=== PATIENT | female | born 1940 | race Two or more races ===

== ENCOUNTER 2023-10-28 13:07 | Inpatient (IN) | payer OTHER ==
[~2023-10-28] VITALS: Ht 167.6 cm; Wt 79.4 kg
[2023-10-28] MEDS: PANTOPRAZOLE 40 MG/10 ML VIAL INJ IV ONE (13:53)
[2023-10-28] MEDS: GLUCAGON EMERG KIT 1mg/1ml IV ONE (13:54)
[2023-10-28] MEDS: SODIUM CHLORIDE 0.9% 1,000 ML IV ONE (15:30)
[2023-10-28 16:09] LABS: Basophils # (auto) 0 10 ^3/uL (0-0.2); Basophils % (auto) 0.1 % (0.0-2.0); Eosinophils # (auto) 0.4 10 ^3/uL (0-0.8); Hematocrit 35.6 % (36.0-46.0); Hemoglobin 11.7 g/dL (12.2-16.2); Lymphocytes # (auto) 1.7 10 ^3/uL (0.4-5.4); Lymphocytes % (auto) 17.1 % (10.0-50.0); Mean Corpuscular Hemoglobin 29.3 pg (28.0-32.0); Mean Corpuscular Hgb Conc. 32.8 g/dL (32.0-36.0); Mean Corpuscular Volume 89.3 fL (80.0-100.0); Monocytes # (auto) 0.4 10 ^3/uL (0-1.3); Monocytes % (auto) 4.2 % (0.0-12.0); Neutrophils # (auto) 7.6 10 ^3/uL (1.6-8.6); Neutrophils % (auto) 74.6 % (37.0-80.0); Red Blood Cells 3.99 10^6/uL (4.0-5.20); Red Cell Distribution Width 14.4 % (11.8-14.3); White Blood Cell 10.2 10^3/uL (4.4-10.8)
[2023-10-28 16:20] LABS: Chloride 106 mmol/L (98-107); Sodium 140 mmol/L (136-145)
[2023-10-28 16:21] LABS: Anion Gap 4 (5-15); Calcium 9.7 mg/dL (8.5-10.1); Carbon Dioxide 30 mmol/L (20-30)
[2023-10-28 16:26] LABS: BUN/Creatinine Ratio 17.5 (10.0-20.0); Blood Urea Nitrogen 18 mg/dL (9-23); Glucose 221 mg/dL (74-106)
[2023-10-28 16:28] LABS: INR 0.97 (0.9-1.15); Partial Thromboplastin Time 25.4 SEC (24.5-34.5); Prothrombin Time 10.3 sec (9.3-11.8)
[2023-10-28] MEDS ORDERED: HYDROcodone-ACET 5/325MG TAB PO PRN (17:00)
[2023-10-28] MEDS ORDERED: DOCUSATE SOD 100 MG CAP PO PRN (17:00)
[2023-10-28] MEDS ORDERED: HYDROmorphone HCL 2 MG/ML VL/or syr IV PRN (17:00)
[2023-10-28] MEDS ORDERED: ONDANSETRON HCL 4 MG/2 ML VIAL IV PRN (17:00)
[2023-10-28] MEDS ORDERED: ACETAMINOPHEN 325 MG TAB PO PRN (17:00)
[2023-10-28] MEDS: LACTATED RINGER'S 1,000 ML IV ONE (17:16)
[2023-10-28 19:40] VITALS: PULSE 68; RESP 16; O2SAT 97
[2023-10-28] MEDS: SODIUM CHLOR 0.9% PF (SALINE LOCK) 10ML VIAL/SYR IV SCH (22:03)
[2023-10-28] MEDS: cloNIDine HCL 0.1 MG TAB PO ONE (23:16)
[2023-10-29] VITALS (8 sets, daily range): BP systolic 143–158; BP diastolic 49–87; PULSE 57–75; RESP 16–20; TEMP 97.5–98.1; O2SAT 94–100
[2023-10-29] MEDS ORDERED: LISI40TA16 PO (01:23)
[2023-10-29] MEDS ORDERED: AMLO1TAB22 PO (01:23)
[2023-10-29] MEDS ORDERED: ROSU20TA56 PO (01:23)
[2023-10-29] MEDS ORDERED: VERA180T60 PO (01:23)
[2023-10-29] MEDS: ENOXAPARIN SOD 40 MG/0.4 ML SYRINGE SC SCH (10:00)
[2023-10-29] MEDS ORDERED: HYDROmorphone HCL 2 MG/ML VL/or syr IV PRN (12:00)
[2023-10-29] MEDS: ACCU-CHEK COMFORT CURVE STRIP VI ONE (12:00)
[2023-10-29] MEDS ORDERED: fentaNYL CITRATE 100 MCG/2 ML VL ONE (12:01)
[2023-10-29] MEDS ORDERED: PROPOFOL 10 MG/ML 20 ML IV ONE (12:01)
[2023-10-29] MEDS ORDERED: MIDAZOLAM HCL 2MG/2ML 2ml VIAL (1mg/ml) ONE (12:01)
[2023-10-29] MEDS ORDERED: ONDANSETRON HCL 4 MG/2 ML VIAL ONE (12:01)
[2023-10-29] MEDS ORDERED: GLYCOPYRROLATE 0.2 MG/ML 1ML VIAL ONE (12:01)
[2023-10-29] MEDS ORDERED: MEPERIDINE HCL (25 MG/ML) 1ML VIAL ONE (12:28)
[2023-10-29] MEDS: EPINEPHrine HCL 1 MG/10 ML SYRG ONE (12:30)
[2023-10-29] MEDS: PANTOPRAZOLE 40mg/50ML NS AE 50 ML IV SCH (13:15)
[2023-10-29] MEDS ORDERED: GLIP5TAB5 PO (16:52)
[2023-10-29] MEDS: hydrALAZINE HCL 20 MG/ML VL IV PRN (17:25)
[2023-10-29] MEDS: ATORVASTATIN 20 MG TAB PO SCH (21:34)
[2023-10-30] VITALS (8 sets, daily range): BP systolic 131–192; BP diastolic 25–60; PULSE 61–76; RESP 18–19; TEMP 97.7–98.8; O2SAT 93–97
[2023-10-30 06:42] LABS: Basophils # (auto) 0 10 ^3/uL (0-0.2); Basophils % (auto) 0.2 % (0.0-2.0); Eosinophils # (auto) 0.3 10 ^3/uL (0-0.8); Eosinophils % (auto) 4.1 % (0.0-7.0); Hematocrit 34.6 % (36.0-46.0); Hemoglobin 11.2 g/dL (12.2-16.2); Lymphocytes # (auto) 1.6 10 ^3/uL (0.4-5.4); Lymphocytes % (auto) 23.7 % (10.0-50.0); Mean Corpuscular Hemoglobin 28.7 pg (28.0-32.0); Mean Corpuscular Hgb Conc. 32.4 g/dL (32.0-36.0); Mean Corpuscular Volume 88.6 fL (80.0-100.0); Monocytes # (auto) 0.3 10 ^3/uL (0-1.3); Monocytes % (auto) 4.5 % (0.0-12.0); Neutrophils # (auto) 4.6 10 ^3/uL (1.6-8.6); Neutrophils % (auto) 67.5 % (37.0-80.0); Nucleated Red Blood Cells % 0.2 %; Red Cell Distribution Width 14.3 % (11.8-14.3); White Blood Cell 6.8 10^3/uL (4.4-10.8)
[2023-10-30 06:58] LABS: Albumin 3.6 g/dL (3.2-4.8); Alkaline Phosphatase 61 U/L (46-116); Anion Gap 10 (5-15); Aspartate Aminotransferase 16 U/L (13-40); BUN/Creatinine Ratio 14.1 (10.0-20.0); Blood Urea Nitrogen 14 mg/dL (9-23); Calcium 9.7 mg/dL (8.7-10.4); Carbon Dioxide 24 mmol/L (20-30); Chloride 107 mmol/L (98-107); Glucose 92 mg/dL (74-106); Potassium 3.9 mmol/L (3.5-5.1); Sodium 141 mmol/L (136-145)
[2023-10-30 06:59] LABS: Bilirubin, Total 0.5 mg/dL (0.2-1.0)
[2023-10-30 07:11] LABS: Alanine Aminotransferase 9 U/L (7-40)
[2023-10-30] MEDS ORDERED: DEXTROSE (50%) 50ML SYRG IV PRN (10:45)
[2023-10-30] MEDS: amLODIPine BESYLATE 5 MG TAB PO SCH (11:14)
[2023-10-30] MEDS: LISINOPRIL 20 MG TAB PO SCH (11:14)
[2023-10-30] MEDS: VERAPAMIL HCL 180mg SR tab PO SCH (11:15)
[2023-10-30] MEDS: InsuLIN REG 1unit/0.01ml Soln (100units/ml) SC SCH (11:24)
[2023-10-30] MEDS: ACCU-CHEK COMFORT CURVE STRIP VI SCH (11:24)
[2023-10-30 13:45] LABS: Urine Bacteria None Seen /hpf (None Seen)
[2023-10-30 14:08] LABS: Urine Blood Negative /uL (Negative); Urine Clarity Clear (Clear); Urine Color Light-Yellow (Yellow); Urine Mucus FEW (None Seen); Urine Protein, UAD Negative (Negative); Urine Specific Gravity 1.017 (1.001-1.035); Urine Urobilinogen Normal (Negative); Urine WBC 2 /hpf (0 - 5)
[2023-10-30] MEDS: hydrALAZINE HCL 20 MG/ML VL IV ONE (23:05)
[2023-10-31] VITALS (9 sets, daily range): BP systolic 138–160; BP diastolic 52–55; PULSE 62–95; RESP 18–20; TEMP 97.7–98.3; O2SAT 92–98
[2023-10-31 07:22] LABS: Basophils # (auto) 0 10 ^3/uL (0-0.2); Basophils % (auto) 0.1 % (0.0-2.0); Chloride 106 mmol/L (98-107); Eosinophils # (auto) 0.2 10 ^3/uL (0-0.8); Eosinophils % (auto) 2.2 % (0.0-7.0); Hematocrit 33.6 % (36.0-46.0); Hemoglobin 11.1 g/dL (12.2-16.2); Lymphocytes # (auto) 1.1 10 ^3/uL (0.4-5.4); Lymphocytes % (auto) 14.5 % (10.0-50.0); Mean Corpuscular Hemoglobin 29.4 pg (28.0-32.0); Mean Corpuscular Hgb Conc. 32.9 g/dL (32.0-36.0); Mean Corpuscular Volume 89.2 fL (80.0-100.0); Monocytes # (auto) 0.6 10 ^3/uL (0-1.3); Monocytes % (auto) 7.5 % (0.0-12.0); Neutrophils # (auto) 5.7 10 ^3/uL (1.6-8.6); Neutrophils % (auto) 75.7 % (37.0-80.0); Nucleated Red Blood Cells % 0.1 %; Potassium 3.6 mmol/L (3.5-5.1); Red Blood Cells 3.77 10^6/uL (4.0-5.20); Red Cell Distribution Width 14.5 % (11.8-14.3); Sodium 139 mmol/L (136-145); White Blood Cell 7.5 10^3/uL (4.4-10.8)
[2023-10-31 07:23] LABS: Anion Gap 9 (5-15); Calcium 9.6 mg/dL (8.5-10.1); Carbon Dioxide 24 mmol/L (20-30)
[2023-10-31 07:28] LABS: BUN/Creatinine Ratio 8.1 (10.0-20.0); Blood Urea Nitrogen 8 mg/dL (9-23); Glucose 146 mg/dL (74-106)
[2023-10-31] MEDS ORDERED: LIDOCAINE 2% (LOCAL ANESTH.) PF 5ml SDV ONE (13:22)
[2023-10-31] MEDS ORDERED: PROPOFOL 10 MG/ML 20 ML IV ONE (13:22)
[2023-10-31] MEDS: SUCRALFATE 1 GM/10 ML ORAL SUSP PO SCH (18:44)
[2023-11-01 01:00] VITALS: BP 153/55; PULSE 83; RESP 20; TEMP 97.4; O2SAT 95
[2023-11-01 05:00] VITALS: BP 124/59; PULSE 73; RESP 20; TEMP 98; O2SAT 94
[2023-11-01 06:38] LABS: Basophils # (auto) 0 10 ^3/uL (0-0.2); Basophils % (auto) 0.2 % (0.0-2.0); Eosinophils # (auto) 0.2 10 ^3/uL (0-0.8); Eosinophils % (auto) 2.1 % (0.0-7.0); Hematocrit 35.9 % (36.0-46.0); Hemoglobin 11.9 g/dL (12.2-16.2); Lymphocytes # (auto) 1.1 10 ^3/uL (0.4-5.4); Lymphocytes % (auto) 15.5 % (10.0-50.0); Mean Corpuscular Hemoglobin 29.4 pg (28.0-32.0); Monocytes # (auto) 0.5 10 ^3/uL (0-1.3); Neutrophils # (auto) 5.5 10 ^3/uL (1.6-8.6); Neutrophils % (auto) 75.2 % (37.0-80.0); Nucleated Red Blood Cells % 0.1 %; Red Blood Cells 4.04 10^6/uL (4.0-5.20); Red Cell Distribution Width 14.5 % (11.8-14.3); White Blood Cell 7.3 10^3/uL (4.4-10.8)
[2023-11-01 07:50] VITALS: O2SAT 9
[2023-11-01 09:00] VITALS: BP 135/60; PULSE 96; RESP 18; TEMP 98.2; O2SAT 95
[2023-11-01] MEDS ORDERED: PANT40TA2 PO (09:50)
[2023-11-01] MEDS ORDERED: SUCR1TAB31 PO (09:50)
[2023-11-01 10:55] VITALS: BP 135/60; PULSE 82; TEMP 36.8
[2023-11-01 12:54] VITALS: BP 115/61; PULSE 84; RESP 18; TEMP 98.2; O2SAT 96
== END 2023-11-01 12:08 | disposition home or self-care (01) | DRG 393 ==
LOC: ER 13:07 → OVERFLOW 16:50 → CENTRAL 23:53
PROVIDERS: ADMIT Internal Medicine; ATTEND Internal Medicine
PROC: 0DB78ZX Excision of Stomach, Pylorus, Via Natural or Artificial Opening Endoscopic, Diagnostic (ICD-10-PCS; 2023-10-29)
PROC: 0DB48ZX Excision of Esophagogastric Junction, Via Natural or Artificial Opening Endoscopic, Diagnostic (ICD-10-PCS; 2023-10-29)
PROC: 0DB68ZZ Excision of Stomach, Via Natural or Artificial Opening Endoscopic (ICD-10-PCS; 2023-10-29)
PROC: 0DB98ZX Excision of Duodenum, Via Natural or Artificial Opening Endoscopic, Diagnostic (ICD-10-PCS; principal; 2023-10-29 12:03)
PROC: 0DJ08ZZ Inspection of Upper Intestinal Tract, Via Natural or Artificial Opening Endoscopic (ICD-10-PCS; 2023-10-31)
DX: K31.7 Polyp of stomach and duodenum (principal); K29.71 Gastritis, unspecified, with bleeding; E86.0 Dehydration; E78.5 Hyperlipidemia, unspecified; I10 Essential (primary) hypertension; K80.20 Calculus of gallbladder without cholecystitis without obstruction; K29.70 Gastritis, unspecified, without bleeding; E11.9 Type 2 diabetes mellitus without complications; R13.12 Dysphagia, oropharyngeal phase; Z83.3 Family history of diabetes mellitus; Z79.4 Long term (current) use of insulin; Z79.899 Other long term (current) drug therapy
CPT/HCPCS: 36415; 71046; 71250; 80048; 80053; 81001; 82962; 83036; 85025; 85610; 85730; 86850; 86900; 86901; 87081; 93005; C9113; G0378; J1815; J2001; J2250; J2405; J2704